=== PATIENT | male | born 1980 | race Caucasian/White ===

== ENCOUNTER 2018-05-05 22:06 | Inpatient (IN) | payer SELFPAY ==
[~2018-05-05] VITALS: Ht 175.3 cm; Wt 105.0 kg
[2018-05-05 22:40] LABS: APPEARANCE CLEAR ((CLEAR)); BILIRUBIN NEGATIVE; BLOOD SMALL; COLOR YELLOW ((YELLOW)); GLUCOSE (STRIP) NEGATIVE; KETONES NEGATIVE; LEUKOCYTES NEGATIVE; NITRITE NEGATIVE; PROTEIN (STRIP) NEGATIVE; SPECIFIC GRAVITY 1.016 (1.000-1.030); UROBILINOGEN 0.2 MG/DL (0.2-1.0)
[2018-05-05 22:42] LABS: AMPHETAMINE NEGATIVE (500 ng/mL); BARBITURATES NEGATIVE (200 ng/mL); BENZODIAZEPINES NEGATIVE (150 ng/mL); BUPRENORPHINE NEGATIVE (10 ng/mL); COCAINE NEGATIVE (150 ng/mL); METHADONE NEGATIVE (200 ng/mL); METHAMPHETAMINE NEGATIVE (500 ng/mL); OPIATES (MORPHINE) NEGATIVE (100 ng/mL); OXYCODONE NEGATIVE (100 ng/mL); PHENCYCLIDINE NEGATIVE (25 ng/mL); PROPOXYPHENE NEGATIVE (300 ng/mL); THC CANNABINOIDS NEGATIVE (50 ng/mL); TRICYCLIC ANTIDEPRESSANTS PRESUMPTIVE POSITIVE (300 ng/mL)
[2018-05-05 22:51] LABS: BACTERIA NONE SEEN /HPF; EPITHELIAL CELLS NONE SEEN /HPF; MUCUS NONE SEEN /LPF; WHITE BLOOD CELLS 0-5 /HPF (0-5)
[2018-05-05 23:07] LABS: HEMATOCRIT 44.1 % (38.0-50.0); HEMOGLOBIN 15.1 G/DL (12.5-16.6); MCH 28.7 PG (29.0-34.0); MCHC 34.2 G/DL (30.0-36.0); MCV 83.8 FL (86-99); PLATELET COUNT 194 K/uL (156-360); RBC DIS.WIDTH-CV 13.2 % (11.8-14.6); RBC DIS.WIDTH-SD 39.9 % (39-53); RED BLOOD COUNT 5.26 M/uL (4.00-5.50); WHITE BLOOD COUNT 6.9 K/uL (4.1-10.2)
[2018-05-05 23:18] LABS: ALBUMIN 4.6 g/dL (3.2-4.8); CHLORIDE 105 mEq/L (99-109); POTASSIUM 3.9 mEq/L (3.7-5.4); SODIUM 140 mEq/L (136-147)
[2018-05-05 23:20] LABS: GLUCOSE 139 mg/dL (70-99); TOTAL PROTEIN 7.7 g/dL (6.4-8.3)
[2018-05-05 23:22] LABS: TOTAL BILIRUBIN 0.4 mg/dL (0.0-1.0)
[2018-05-05 23:23] LABS: SERUM ETHYL ALCOHOL < 10 mg/dL
[2018-05-05 23:24] LABS: ALKALINE PHOSPHATASE 69 IU/L (3-129); CREATININE 1.1 mg/dL (0.6-1.3)
[2018-05-05 23:25] LABS: UREA NITROGEN (BUN) 10 mg/dL (9-23)
[2018-05-05 23:26] LABS: AST (GOT) 18 IU/L (2-34)
[2018-05-05 23:27] LABS: ALT (GPT) 29 IU/L (3-49); GFR ESTIMATE (CALCULATED) > 59 mL/min/ (58.99-99999)
[2018-05-06] MEDS ORDERED: CATAPRES0.1 MG PO (00:19)
[2018-05-06] MEDS ORDERED: TRAZODONE HCL300 MG PO (00:19)
[2018-05-06] MEDS ORDERED: SEROQUEL400 MG PO (00:19)
[2018-05-06] MEDS ORDERED: NEURONTIN100 MG PO (00:20)
[2018-05-06 03:00] VITALS: BP 111/82
[2018-05-06 08:00] VITALS: BP 124/56
[2018-05-06] MEDS ORDERED: CLONIDINE HCL0.1 MG PO (10:44)
[2018-05-06 16:01] VITALS: BP 108/59
[2018-05-07 07:50] VITALS: BP 98/54
[2018-05-07] MEDS ORDERED: NEURONTIN100 MG PO (08:59)
[2018-05-07] MEDS ORDERED: CLONIDINE HCL0.1 MG PO (08:59)
[2018-05-07] MEDS ORDERED: TRAZODONE HCL300 MG PO (08:59)
[2018-05-07] MEDS ORDERED: SEROQUEL400 MG PO (08:59)
== END 2018-05-07 11:45 | disposition home or self-care (01) | DRG 885 ==
LOC: EME 22:06 → EDOF 05-06 00:30 → 1WEST 05-06 03:12 → ENRESERV 05-06 03:12 → 1WEST 05-07 11:45
PROVIDERS: Emergency Medicine
DX: F31.81 Bipolar II disorder (principal); F43.23 Adjustment disorder with mixed anxiety and depressed mood; F43.10 Post-traumatic stress disorder, unspecified; Z76.5 Malingerer [conscious simulation]; R45.851 Suicidal ideations; E66.9 Obesity, unspecified; Z59.0 Homelessness
CPT/HCPCS: 80053; 81003; 85027; 90837; 99281; 99285; G0480